=== PATIENT | female | born 1980 | race Caucasian/White ===

== ENCOUNTER 2018-09-07 02:27 | Outpatient (CLI) | payer MEDICARE ==
[~2018-09-07 02:27] MED LIST: BUPR150T26; DIVA500T58; HYDR-3972; IBUP-1574; IBUP-1984 PO; LAMO200T24; LEVA15HF4; LEVO50TA78; OMEP-84; SERT-128; TRIA1CAP6; [UNRECOGNIZED DRUG - CODE]
== END 2018-09-07 23:59 | disposition home or self-care (01) ==
LOC: DIABETIC 02:27
PROVIDERS: ATTEND Nurse Practitioner Family
DX: E11.9 Type 2 diabetes mellitus without complications (principal); K21.9 Gastro-esophageal reflux disease without esophagitis; F32.9 Major depressive disorder, single episode, unspecified; E78.1 Pure hyperglyceridemia; I10 Essential (primary) hypertension; Z63.79 Other stressful life events affecting family and household
CPT/HCPCS: G0108

== ENCOUNTER 2018-10-28 01:37 | Outpatient (CLI) | payer MEDICARE | END 2018-10-28 23:59 | disposition home or self-care (01) | LOC: DIABETIC 01:37 | PROVIDERS: ATTEND Nurse Practitioner Family | DX: E11.9 Type 2 diabetes mellitus without complications (principal); I10 Essential (primary) hypertension; K21.9 Gastro-esophageal reflux disease without esophagitis; E66.01 Morbid (severe) obesity due to excess calories | CPT/HCPCS: 97802 ==

== ENCOUNTER 2023-02-21 13:32 | Emergency (ER) | payer MEDICARE ==
[~2023-02-21 13:32] MED LIST changes: -TRIA1CAP6; +TRIA1CAP88
== END 2023-02-21 16:44 | disposition left against medical advice (07) ==
LOC: ER 13:33
DX: J11.1 Influenza due to unidentified influenza virus with other respiratory manifestations (principal); Z53.21 Procedure and treatment not carried out due to patient leaving prior to being seen by health care provider